=== PATIENT | female | born 1985 | race Caucasian/White ===

== ENCOUNTER 2024-01-06 10:27 | Emergency (ER) | payer OTHER ==
[~2024-01-06] VITALS: Ht 149.8 cm; Wt 61.2 kg
[2024-01-06] MEDS ORDERED: SKYRIZI150 MG/1 M SQ (10:45)
[2024-01-06] MEDS ORDERED: Ondansetron Hydrochloride 4 MG/2 ML VIAL IV ONE (11:05)
[2024-01-06] MEDS ORDERED: SODIUM CHLORIDE 0.9% 1,000 ML IV ONE (11:10)
[2024-01-06] MEDS ORDERED: HYDROmorphONE Hydrochloride 1 MG/ML SYR IV ONE ×2 (11:15→14:05)
[2024-01-06 11:46] LABS: BASO % 0.1 % (0.0-1.0); EOS % 0.1 % (1.0-4.0); HEMATOCRIT 38.3 % (37.0-47.0); LYMPH # 1.2 10*3/uL (1.3-4.4); LYMPH % 12.9 % (27.0-41.0); MEAN CELL VOLUME 86.1 fl (81.0-99.0); MEAN CORPUSCULAR HGB CONC 33.7 g/dl (33.0-37.0); MEAN PLATELET VOLUME 11.3 fl (9.6-12.3); MONO # 0.2 10*3/uL (0.1-1.0); MONO % 1.9 % (3.0-9.0); NEUT # 7.8 10*3/uL (2.3-7.9); NEUT % 84.8 % (47.0-73.0); PLATELET COUNT AUTOMATED 333 10*3/uL (130-400); RED BLOOD COUNT 4.45 10*6/uL (4.10-5.10); RED CELL DISTRI WIDTH 14.4 % (0-14.5); WHITE BLOOD COUNT 9.2 10*3/uL (4.8-10.8)
[2024-01-06 12:03] LABS: BUN 6 mg/dl (9-23); CHLORIDE 107 mmol/L (98-107); LIPASE 29 U/L (12-53); POTASSIUM 3.9 mmol/L (3.4-5.1)
[2024-01-06] MEDS ORDERED: TIZANIDINE HCL4 MG PO (12:09)
[2024-01-06] MEDS ORDERED: HYDROCODONE-AC1 EAC1 PO (12:09)
[2024-01-06] MEDS ORDERED: ATORVASTATIN CA10 M1 PO (12:10)
[2024-01-06] MEDS ORDERED: BUPROPION XL300 MG PO (12:10)
[2024-01-06] MEDS ORDERED: methylPREDNISolone sod succ 125 MG VIAL IV ONE (12:30)
[2024-01-06] MEDS ORDERED: diphenhydrAMINE hydrochloride 50 MG/ML VIAL IV ONE ×2 (12:30→14:05)
[2024-01-06] MEDS ORDERED: PREDNISONE10 MG PO (14:04)
[2024-01-06] MEDS ORDERED: PERCOCET 5-3251 EACH PO (14:04)
== END 2024-01-06 14:56 | disposition home or self-care (01) ==
LOC: ED 10:27
PROVIDERS: Emergency Medicine
DX: K50.90 Crohn's disease, unspecified, without complications (principal); R11.2 Nausea with vomiting, unspecified; Z91.041 Radiographic dye allergy status; Z88.5 Allergy status to narcotic agent; Z88.8 Allergy status to other drugs, medicaments and biological substances; Z98.890 Other specified postprocedural states; Z87.891 Personal history of nicotine dependence; Z90.49 Acquired absence of other specified parts of digestive tract; Z90.710 Acquired absence of both cervix and uterus

== ENCOUNTER 2024-03-12 23:13 | Emergency (ER) | payer OTHER ==
[~2024-03-12] VITALS: Ht 149.8 cm; Wt 61.2 kg
[~2024-03-12 23:13] MED LIST: ATORVASTATIN CA10 M1 PO; BUPROPION XL300 MG PO; HYDROCODONE-AC1 EAC1 PO; PERCOCET 5-3251 EACH PO; PREDNISONE10 MG PO; SKYRIZI150 MG/1 M SQ; TIZANIDINE HCL4 MG PO
[2024-03-13 00:14] LABS: BASO % 0.4 % (0.0-1.0); EOS # 0.5 10*3/uL (0.0-0.4); HEMATOCRIT 38.7 % (37.0-47.0); LYMPH # 4.3 10*3/uL (1.3-4.4); LYMPH % 39.4 % (27.0-41.0); MEAN CORPUSCULAR HGB 28.5 pg (27.0-31.0); MEAN PLATELET VOLUME 10.7 fl (9.6-12.3); MONO # 0.7 10*3/uL (0.1-1.0); NEUT # 5.3 10*3/uL (2.3-7.9); NEUT % 48.8 % (47.0-73.0); PLATELET COUNT AUTOMATED 403 10*3/uL (130-400); RED BLOOD COUNT 4.35 10*6/uL (4.10-5.10); RED CELL DISTRI WIDTH 14.3 % (0-14.5); WHITE BLOOD COUNT 10.9 10*3/uL (4.8-10.8)
[2024-03-13 00:35] LABS: ALKALINE PHOSPHATASE 116 U/L (46-116); BUN 10 mg/dl (9-23); CHLORIDE 103 mmol/L (98-107); LIPASE 27 U/L (12-53); POTASSIUM 3.5 mmol/L (3.4-5.1); SGPT/ALT 52 U/L (5-49); TOTAL PROTEIN 7.4 gm/dL (6.0-8.0)
[2024-03-13] MEDS ORDERED: diphenhydrAMINE hydrochloride 50 MG/ML VIAL IV ONE (00:45)
[2024-03-13] MEDS ORDERED: Ondansetron Hydrochloride 4 MG/2 ML VIAL IV ONE (00:45)
[2024-03-13] MEDS ORDERED: HYDROmorphONE Hydrochloride 1 MG/ML SYR IV ONE (00:45)
[2024-03-13] MEDS ORDERED: methylPREDNISolone sod succ 125 MG VIAL IV ONE (00:45)
[2024-03-13] MEDS ORDERED: PREDNISONE20 M1 PO (01:07)
== END 2024-03-13 01:30 | disposition home or self-care (01) ==
LOC: ED 23:13
PROVIDERS: Internal Medicine
DX: K50.90 Crohn's disease, unspecified, without complications (principal); K92.1 Melena; Z91.041 Radiographic dye allergy status; Z88.8 Allergy status to other drugs, medicaments and biological substances; Z88.5 Allergy status to narcotic agent; Z90.49 Acquired absence of other specified parts of digestive tract; Z98.890 Other specified postprocedural states

== ENCOUNTER 2024-04-09 21:11 | Emergency (ER) | payer OTHER ==
[~2024-04-09] VITALS: Ht 149.8 cm; Wt 61.2 kg
[~2024-04-09 21:11] MED LIST changes: +PREDNISONE20 M1 PO
[2024-04-09] MEDS ORDERED: diphenhydrAMINE hydrochloride 50 MG/ML VIAL IV ONE (22:25)
[2024-04-09] MEDS ORDERED: HYDROmorphONE Hydrochloride 0.5 MG/0.5 ML SYRINGE IV ONE (22:25)
[2024-04-09] MEDS ORDERED: Dexamethasone Sodium Phospha 20 MG/5 ML VIAL IV ONE (22:25)
[2024-04-09 23:31] LABS: BASO # 0.1 10*3/uL (0.0-0.1); BASO % 0.8 % (0.0-1.0); EOS # 1.4 10*3/uL (0.0-0.4); EOS % 10.7 % (1.0-4.0); HEMATOCRIT 37.9 % (37.0-47.0); MEAN CELL VOLUME 87.5 fl (81.0-99.0); MEAN CORPUSCULAR HGB 28.4 pg (27.0-31.0); MEAN CORPUSCULAR HGB CONC 32.5 g/dl (33.0-37.0); MEAN PLATELET VOLUME 11.3 fl (9.6-12.3); MONO # 0.7 10*3/uL (0.1-1.0); MONO % 5.3 % (3.0-9.0); NEUT # 5.9 10*3/uL (2.3-7.9); NEUT % 46.9 % (47.0-73.0); PLATELET COUNT AUTOMATED 346 10*3/uL (130-400); RED BLOOD COUNT 4.33 10*6/uL (4.10-5.10); RED CELL DISTRI WIDTH 13.8 % (0-14.5); WHITE BLOOD COUNT 12.6 10*3/uL (4.8-10.8)
[2024-04-10] LABS: ALKALINE PHOSPHATASE 128 U/L (46-116); CHLORIDE 107 mmol/L (98-107); POTASSIUM 3.5 mmol/L (3.4-5.1); SGPT/ALT 16 U/L (5-49); TOTAL PROTEIN 7.3 gm/dL (6.0-8.0)
[2024-04-10 00:10] LABS: BUN < 5 mg/dl (9-23)
== END 2024-04-10 00:39 | disposition home or self-care (01) ==
LOC: ED 21:11
PROVIDERS: Internal Medicine
DX: K52.9 Noninfective gastroenteritis and colitis, unspecified (principal); R11.2 Nausea with vomiting, unspecified; Z91.041 Radiographic dye allergy status; Z88.5 Allergy status to narcotic agent; Z88.8 Allergy status to other drugs, medicaments and biological substances; Z98.890 Other specified postprocedural states; Z90.49 Acquired absence of other specified parts of digestive tract

== ENCOUNTER 2024-04-14 06:00 | Emergency (ER) | payer OTHER ==
[~2024-04-14] VITALS: Ht 149.8 cm; Wt 61.2 kg
[2024-04-14] MEDS ORDERED: diphenhydrAMINE hydrochloride 50 MG/ML VIAL IV ONE (07:10)
[2024-04-14] MEDS ORDERED: SODIUM CHLORIDE 0.9% 1,000 ML IV ONE (07:10)
[2024-04-14] MEDS ORDERED: methylPREDNISolone sod succ 125 MG VIAL IV ONE (07:10)
[2024-04-14] MEDS ORDERED: Ondansetron Hydrochloride 4 MG/2 ML VIAL IV ONE (07:10)
[2024-04-14] MEDS ORDERED: HYDROmorphONE Hydrochloride 1 MG/ML SYR IV ONE (07:10)
[2024-04-14 07:30] LABS: BASO # 0.1 10*3/uL (0.0-0.1); BASO % 0.5 % (0.0-1.0); EOS # 1.4 10*3/uL (0.0-0.4); EOS % 11.7 % (1.0-4.0); HEMATOCRIT 40.7 % (37.0-47.0); MEAN CORPUSCULAR HGB CONC 32.2 g/dl (33.0-37.0); MEAN PLATELET VOLUME 11.4 fl (9.6-12.3); MONO # 0.8 10*3/uL (0.1-1.0); MONO % 6.9 % (3.0-9.0); NEUT # 5.4 10*3/uL (2.3-7.9); NEUT % 45.8 % (47.0-73.0); PLATELET COUNT AUTOMATED 348 10*3/uL (130-400); RED BLOOD COUNT 4.68 10*6/uL (4.10-5.10); RED CELL DISTRI WIDTH 13.9 % (0-14.5); WHITE BLOOD COUNT 11.8 10*3/uL (4.8-10.8)
[2024-04-14 08:12] LABS: BUN 9 mg/dl (9-23); CHLORIDE 107 mmol/L (98-107); LIPASE 39 U/L (12-53); POTASSIUM 3.5 mmol/L (3.4-5.1)
[2024-04-14 08:26] LABS: BILIRUBIN Negative (Negative); BLOOD Negative (Negative); CLARITY Cloudy (Clear); COLOR Yellow (Yellow); GLUCOSE Negative (Negative); KETONE Negative (Negative); LEUKO ESTERASE Negative (Negative); NITRITE Negative (Negative); PH 7.5 (4.5-8.0); UROBILINOGEN 0.2 E.U./dl (0.0-1.0)
[2024-04-14] MEDS ORDERED: PREDNISONE10 M1 PO (08:27)
[2024-04-14 09:04] LABS: BACTERIA 3+; EPITHELIAL CELLS 16-20
== END 2024-04-14 08:32 | disposition home or self-care (01) ==
LOC: ED 06:00
PROVIDERS: Emergency Medicine
DX: K50.90 Crohn's disease, unspecified, without complications (principal); Z91.041 Radiographic dye allergy status; Z88.8 Allergy status to other drugs, medicaments and biological substances; Z88.5 Allergy status to narcotic agent; Z79.899 Other long term (current) drug therapy; Z90.49 Acquired absence of other specified parts of digestive tract; Z98.890 Other specified postprocedural states